=== PATIENT | male | born 1955 | race Caucasian/White ===

== ENCOUNTER 2024-06-04 04:32 | Emergency (ER) | payer MEDICARE, SELFPAY ==
[2024-06-04 04:38] VITALS: BP 136/104; PULSE 59; TEMP 36.4; O2SAT 100; BMI 36.6
--- NOTE | 2024-06-04 04:44 | CT_ITS ---
The [address] [address] Patient Name: MARLENY NUÑEZ MRN: [id number] date: 1955 Sex: M Assigned Patient Location: ER Current Patient Location: ER Accession/Order Number: [id number] Exam Date: 06/04/2024 05:17 Report Date: 06/04/2024 05:40 At the request of: JAKUB RICHARDSON Procedure: CT abdomen pelvis wo con CT ABDOMEN PELVIS WITHOUT CONTRAST HISTORY: Right flank pain. COMPARISON: None. TECHNIQUE: Thin section axial CT images were obtained from the lung bases to the pubis symphysis. This CT exam was performed using one or more of the following dose reduction techniques: Automated exposure control, adjustment of the mA and/or kV according to patient size, or use of iterative reconstruction technique. Thin section coronal and sagittal images were reconstructed from the axial data set. All images were reviewed and interpreted. CONTRAST: None. FINDINGS: Assessment of solid organs is limited without the benefit of IV contrast. LUNG BASES: The lung bases are clear. GE JUNCTION AND STOMACH: Negative. No hiatal hernia. LIVER: Negative. GALLBLADDER AND BILIARY TREE: Normal gallbladder. SPLEEN: Negative. PANCREAS: Negative. ADRENALS: Negative. RIGHT KIDNEY AND URETER: There is mild right hydronephrosis. Currently no retained calculi in right kidney or along the course of the right ureter. There is a stone in the bladder which presumably is just past right ureter and bladder. Correlate for symptoms improvement. Correlate with urine straining and urinalysis. There remains some mild right perinephric stranding. No right renal mass or cyst. LEFT KIDNEY AND URETER: Negative. No urinary tract calculi or hydronephrosis. No renal masses or cysts are evident. SMALL BOWEL: Negative. LARGE BOWEL: Negative. APPENDIX: No active disease with normal appendix. AORTA: The abdominal aorta is normal size. IVC: Negative. LYMPH NODES: There is no lymphadenopathy. BLADDER: Stated above there is a 3 mm calculus within the bladder base near right ureterovesical junction. Appears to have recently passed from right ureter. Bladder otherwise negative. BONES: Unremarkable. COMMENTS: No ascites. No free air. No loculated fluid. CT/CT abdomen pelvis wo con IMPRESSION: 3 mm calculus right bladder base appears to have just passed from right ureter into bladder. There is some mild residual right hydroureteronephrosis. Correlate for symptoms improvement. Correlate you're and stranding urinalysis. No additional calcifications remaining within either kidney or ureter. Electronically authenticated by: SHONA AMBROSE Date: 06/04/2024 05:40
[2024-06-04 04:50] LABS: Basophils Absolute Auto 0.1 10^3/uL (0.0-0.1); Basophils Percent Auto 0.9 % (0.2-2.0); Eosinophils Absolute Auto 0.2 10^3/uL (0.0-0.7); Eosinophils Percent Auto 2.9 % (0.9-7.0); Hematocrit 40.7 % (42.0-54.0); Hemoglobin 13.7 g/dL (14.0-18.0); Immature Granulocytes Abs Auto 0.01 10^3/uL (0.00-0.03); Immature Granulocytes Pct Auto 0.2 % (0.0-0.5); Lymphocytes Absolute Auto 3.4 10^3/uL (1.2-3.8); Lymphocytes Percent Auto 51.7 % (20.5-60.0); Mean Corpuscular HGB Conc 33.7 g/dL (29.9-35.2); Mean Corpuscular Hemoglobin 30.2 pg (25.9-34.0); Mean Corpuscular Volume 89.6 fL (80.0-94.0); Mean Platelet Volume 9.6 fL (9.5-13.5); Monocytes Absolute Auto 0.6 10^3/uL (0.3-0.8); Monocytes Percent Auto 8.5 % (1.7-12.0); Neutrophils Absolute Auto 2.4 10^3/uL (1.4-6.5); Neutrophils Percent Auto 35.8 % (43.0-75.0); Platelet Count 161 10^3/uL (150-450); Red Blood Count 4.54 10^6/uL (4.70-6.10); Red Cell Distribution Width 13.1 % (11.0-15.0); White Blood Count 6.6 10^3/uL (4.0-11.0)
--- NOTE | 2024-06-04 04:51 | ED_ITS ---
HPI HPI - General Adult General Chief complaint: Abdominal Pain Stated complaint: FLANK PAIN Time Seen by Provider: 06/04/24 04:33 Source: patient Mode of arrival: walk-in Limitations: no limitations History of Present Illness HPI narrative: 69-year-old male presents to the emergency department for right flank pain. It started at 3:15am and it woke him up. He has never had a kidney stone and has had no injury or unusual activity. No dysuria or hematuria. The pain has been continuous and he is nauseous. Related Data Home Medications ?Medication ?Instructions ?Recorded ?Confirmed lisinopril 10 mg tablet 10 mg PO DAILY 06/04/24 06/04/24 Previous Rx's ?Medication ?Instructions ?Recorded hydrocodone 5 mg-acetaminophen 325 1 tab PO Q6H PRN pain 5 days #20 06/04/24 mg tablet tabs ondansetron 4 mg disintegrating 4 mg PO Q6H PRN nausea and 06/04/24 tablet vomiting #20 tabs Allergies Allergy/AdvReac Type Severity Reaction Status Date / Time No Known Drug Allergies Allergy Verified 06/04/24 04:43 Opioid HPI Opioid Management Most Recent Opioid Data: No Data to Display Review of Systems ROS Narrative A ten point review of systems is negative except as noted above. PFSH PFSH Social History Little interest or pleasure in doing things: not at all Feeling down, depressed, or hopeless: not at all Exam Narrative Exam Narrative: Nurses note and vital signs reviewed and patient is not hypoxic. General: The patient appears uncomfortable Skin: Warm, dry, minimal pallor noted. There is no rash noted. Head: Normocephalic, atraumatic Eye: Normal conjunctiva, no drainage Ears, Nose, Mouth, and Throat: oral mucosa is moist. Nares patent. Cardiovascular: Regular Rate and Rhythm Respiratory: Patient is in no distress, no accessory muscle use, lungs are clear to auscultation, no wheezing, rales or rhonchi Back: non-tender, no CVA tenderness bilaterally to percussion. GI: Soft and nontender Musculoskeletal: The patient has no evidence of calf tenderness, no pitting edema, symmetrical pulses noted bilaterally Neurological: A&O, normal speech Psychiatric: Cooperative Constitutional Vital Signs, click to edit/add: Last Vital Signs Temp 97.6 F 06/04/24 04:38 Pulse 59 L 06/04/24 04:38 Resp 20 06/04/24 04:38 BP 136/104 H 06/04/24 04:38 Pulse Ox 100 06/04/24 04:38 O2 Del Method Room Air 06/04/24 04:38 Course Vital Signs Vital signs: Vital Signs Temperature 97.6 F 06/04/24 04:38 Pulse Rate 59 L 06/04/24 04:38 Respiratory Rate 20 06/04/24 04:38 Blood Pressure 136/104 H 06/04/24 04:38 Pulse Oximetry 100 06/04/24 04:38 Oxygen Delivery Method Room Air 06/04/24 04:38 Temperature 97.6 F 06/04/24 04:38 Pulse Rate 59 L 06/04/24 04:38 Respiratory Rate 20 06/04/24 04:38 Blood Pressure 136/104 H 06/04/24 04:38 Pulse Oximetry 100 06/04/24 04:38 Oxygen Delivery Method Room Air 06/04/24 04:38 Medical Decision Making MDM Narrative Medical decision making narrative: The patient has passed a 3 mm stone into the bladder and is able to be discha rged home on [place] and Zofran. He will follow-up with urology and was given a urine strainer and specimen cup. Treatment diagnosis and follow-up were discussed with the patient. Differential Diagnosis Differential Diagnosis: Kidney stone, hydronephrosis, muscle strain Lab Data Lab results reviewed: Yes I reviewed the patient's lab results Labs: Lab Results 06/04/24 Range/Units 04:45 WBC 6.6 (4.0-11.0) 10^3/uL RBC 4.54 L (4.70-6.10) 10^6/uL Hgb 13.7 L (14.0-18.0) g/dL Hct 40.7 L (42.0-54.0) % MCV 89.6 (80.0-94.0) fL MCH 30.2 (25.9-34.0) pg MCHC 33.7 (29.9-35.2) g/dL RDW 13.1 (11.0-15.0) % Plt Count 161 (150-450) 10^3/uL MPV 9.6 (9.5-13.5) fL Neut % (Auto) 35.8 L (43.0-75.0) % Lymph % (Auto) 51.7 (20.5-60.0) % Becker % (Auto) 8.5 (1.7-12.0) % Eos % (Auto) 2.9 (0.9-7.0) % Baso % (Auto) 0.9 (0.2-2.0) % Neut # (Auto) 2.4 (1.4-6.5) 10^3/uL Lymph # (Auto) 3.4 (1.2-3.8) 10^3/uL Becker # (Auto) 0.6 (0.3-0.8) 10^3/uL Eos # (Auto) 0.2 (0.0-0.7) 10^3/uL Baso # (Auto) 0.1 (0.0-0.1) 10^3/uL Abs Immat Gran (auto) 0.01 (0.00-0.03) 10^3/uL Imm/Tot Granulo (auto) 0.2 (0.0-0.5) % Sodium 142 (136-145) mmol/L Potassium 3.8 (3.5-5.1) mmol/L Chloride 107 (98-107) mmol/L Carbon Dioxide 28.1 (21.0-32.0) mmol/L Anion Gap 10.7 BUN 21.0 H (7.0-18.0) mg/dL Creatinine 1.22 (0.70-1.30) mg/dL Est GFR ( Amer) >60 (>=60 mL/min/1.73m^2) Est GFR (Non-Af Amer) 59 L (>=60 mL/min/1.73m^2) BUN/Creatinine Ratio 17.2 Glucose 112 H (74-106) mg/dL Calcium 9.5 (8.5-10.1) mg/dL Imaging Data CT scan - abdomen: Radiologist's impression: ITS Impressions Abdomen/Pelvis CT 06/04/24 04:44 IMPRESSION: 3 mm calculus right bladder base appears to have just passed from right ureter into bladder. There is some mild residual right hydroureteronephrosis. Correlate for symptoms improvement. Correlate you're and stranding urinalysis. No additional calcifications remaining within either kidney or ureter. Electronically authenticated by: SHONA AMBROSE Date: 06/04/2024 05:40 Discharge Plan Discharge Chief Complaint: Abdominal Pain Clinical Impression: Kidney stone Patient Disposition: Home, Self-Care Time of Disposition Decision: 05:48 Condition: Good Mode of Transportation: Private Vehicle Prescriptions / Home Meds: New hydrocodone-acetaminophen 5-325 mg tablet 1 tab PO Q6H PRN (Reason: pain) 5 Days Qty: 20 0RF ondansetron 4 mg tablet,disintegrating 4 mg PO Q6H PRN (Reason: nausea and vomiting) Qty: 20 0RF No Action lisinopril 10 mg tablet 10 mg PO DAILY Print Language: Peruvian Instructions: Kidney Stones (ED), How to Strain Your Urine (ED) Referrals: Physician,Non-Staff, [Primary Care Provider] - 1 week Rao Guerra MD [Physician] - 1 week
[2024-06-04] MEDS: ONDANSETRON PF 4 MG/2 ML VIAL IV (04:55)
[2024-06-04] MEDS: MORPHINE SULFATE 4 MG/ML VIAL IV (04:55)
[2024-06-04] MEDS: 0.9 % SODIUM CHLORIDE 1,000 ML 1000 ML IV (04:55)
[2024-06-04 05:02] LABS: Anion Gap 10.7; BUN Creatinine Ratio 17.2; Calcium 9.5 mg/dL (8.5-10.1); Carbon Dioxide 28.1 mmol/L (21.0-32.0); Chloride 107 mmol/L (98-107); Estimated GFR (African America >60 (>=60 mL/min/1.73m^2); Estimated GFR (Non-African Ame 59 (>=60 mL/min/1.73m^2); Glucose 112 mg/dL (74-106); Potassium 3.8 mmol/L (3.5-5.1); Sodium 142 mmol/L (136-145)
[2024-06-04] MEDS: HYDROMORPHONE HCL 1 MG/ML CARTRIDGE IV (05:22)
[2024-06-04] MEDS: HYDROCODONE/ACET 5-325 MG TABLET 1 TAB PO (06:07)
[2024-06-04 06:09] VITALS: BP 123/81; PULSE 65; O2SAT 94
== END 2024-06-04 06:09 | disposition home or self-care (01) ==
PROVIDERS: Emergency Provider Emergency Medicine
DX: N20.0 Calculus of kidney (principal)
CPT/HCPCS: 36415; 74176; 80048; 81001; 85025; 96374; 96375; 99284; J1171; J2270; J2405